=== PATIENT | male | born 1975 | race Caucasian/White ===

== ENCOUNTER 2016-10-03 17:05 | Emergency (ER) | payer SELFPAY ==
[2016-10-03] MEDS ORDERED: IBUPROFEN 800 MG TAB As Ordered ONE (18:47)
--- NOTE | 2016-10-03 19:11 | REP ---
Clinical: Trauma. Technique: AP, lateral, bilateral oblique views of the right ankle. Comparison: 01/02/2012. 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 Previous orthopedic fixation hardware has been removed. No obvious acute fracture or dislocation. Impression: Post traumatic arthritic changes. No acute fracture or dislocation identified. Signed by Tad Hammonds MD 10/03/2016 07:02 P
--- NOTE | 2016-10-03 20:05 | EDDOCDS ---
Nurse's Notes [facility] Name: Kenneth Gatica Age: 41 yrs Sex: Male : 1975 Arrival Date: 10/03/2016 Time: 17:05 Bed TR7 Private MD: NO PRIMARY PHYSICIAN, . Diagnosis: Sprain of other ligament of right ankle Presentation: 10/03 17:16 Presenting complaint: Patient states: Pt presents with injury to right ankle 4 days ago dls stepped outside t work twisted ankle. Pt has prior hx of surgery on right ankle. The patients lower extremity appears normal on examination. Adult Sepsis Screening: The patient does not have new or worsening altered mentation. Patient's respiratory rate is less than 22. Systolic blood pressure is greater than 100. Patient has a qSOFA score of 0- Negative Sepsis Screen. Suicide/Homicide risk assessment- the patient denies having any suicidal and/or homicidal ideations and does not present with any other emotional, behavioral or mental health complaints. Status: Patient is not a office services assistant or dependent. Transition of care: patient was not received from another setting of care. 17:16 Acuity: GALI Level 4 dls 17:16 Method Of Arrival: Walkin/Carried/Asstd dls Triage Assessment: 17:19 General: Appears in no apparent distress, slender, Behavior is cooperative. Pain: Pain dls currently is 5 out of 10 on a pain scale. HIV screening NA for this visit Offered previously. Historical: - Allergies: Amoxicillin; - Home Meds: 1. none - PMHx: collapsed lung; - PSHx: Chest Tube- Right; right ankle surgery; - Social history: Smoking status: Chewing Tobacco No barriers to communication noted, The patient speaks fluent East Timorese. - Family history: Not pertinent. - : The pt / caregiver states he / she is not on anticoagulants. Home medication list is obtained from the patient. - Exposure Risk Screening:: None identified. Screenin:27 Screening information is obtained from the patient. Primary language is East Timorese. Fall mk4 risk: No risks identified. Assistance ADL's: requires no assistance with activities of daily living. Abuse/DV Screen: The patient / caregiver reports he/she is: not in a situation that causes fear, pain or injury. Nutritional screening: No deficits noted. Advance Directives: Currently, there is no health care proxy. There is no active DNR order. There is no living will. There is no Power of Quality Intern. Advance directive information has not previously been placed in an [facility] medical record. Further advance directive information is declined. 19:50 home support is adequate. ko2 Assessment: 18:27 General: Appears in no apparent distress. Pain: Complains of pain in right ankle. mk4 Awake, alert, oriented. Skin warm and dry. Moves all extremities. No apparent distress. The patient / caregiver is instructed regarding the plan of care and ED course. Physical assessment to be completed by PA/ED. 19:48 General: Appears in no apparent distress, Behavior is appropriate for age, cooperative. ko2 Pain: Location: right ankle. Neurological: Level of Consciousness is awake, alert. Respiratory: Airway is patent Respiratory effort is even, unlabored. Derm: swelling to outer right ankle. Musculoskeletal: Capillary refill < 3 seconds No deformity noted Signs and Symptoms of Compartment Syndrome: no signs of compartment syndrome. Vital Signs: 17:07 BP 145 / 94; Pulse 85; Resp 18 S; Temp 98.5(O); Pulse Ox 100% on R/A; Weight 77.11 kg gr2 (R); Height 6 ft. 5 in. (195.58 cm) (R); Pain 5/10; 19:42 BP 136 / 90; Pulse 73; Resp 18; Temp 97.1(T); Pulse Ox 98% on R/A; Pain 4/10; kb5 17:07 Body Mass Index 20.16 (77.11 kg, 195.58 cm) gr2 Vitals: 17:07 Log In Time: October 03, 2016 at 17:07. gr2 ED Course: 17:06 Patient visited by Sonja Garcia. gr2 17:06 Patient moved to Waiting gr2 17:07 NO PRIMARY PHYSICIAN, . is Private Physician. gr2 17:09 Patient visited by Sonja Garcia. gr2 17:09 Patient moved to Pre RCE gr2 17:18 Triage Initiated dls 18:12 Patient moved to Triage 2 kcs 18:15 Patient visited by Maxine Browning RN. mk4 18:23 James Fortune PA is PHCP. mo1 18:23 Nadia Oakes MD is Attending Physician. mo1 18:24 Patient visited by James Fortune PA. mo1 18:27 Patient has correct armband on for positive identification. mk4 18:50 Patient moved to TR1 kcs 19:20 [facility] Payment Agreement was scanned into [email or web address] and attached to record. gjb 19:23 Ankle, Complete Returned. EDMS 19:31 Patient moved to PR1 / 25 ko2 19:43 Patient visited by Rafael Frank PCA. kb5 19:49 No IV's were initiated during this patient's visit. No procedures done that require ko2 assistance. 19:50 Javi wrap to right ankle. Patient has positive distal pulse, brisk capillary refill, and ko2 positive sensation after application. 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 Previous orthopedic fixation; hardware has been removed. No obvious acute fracture or dislocation.; ; Impression:; Post traumatic arthritic changes. No acute fracture or dislocation identified.; ; ; Signed by; Tad Hammonds MD 10/03/2016 07:02 P; Outcome: 19:25 Discharge ordered by Provider. mo1 19:50 Discharge Assessment: Patient awake, alert and oriented x 3. No cognitive and/or ko2 functional deficits noted. Patient verbalized understanding of disposition instructions. patient administered narcotics - no. The following High Risk Discharge criteria are identified: None. Discharged to home ambulatory. Condition: stable. Discharge instructions given to patient, Instructed on discharge instructions, follow up and referral plans. Demonstrated understanding of instructions, Pt was receptive of discharge instructions/ teaching. No special radiology studies were completed. Property sent home with patient. 20:04 Patient left the ED. ko2 Signatures: Dispatcher [employer] EDMS Karina Randolph RN RN kcs Scott, Debra, RN RN dls Bancroft, Kristopher, PCA ENVELOPE FOLDER kb5 Sonja Garcia gr2 James Fortune PA PA mo1 Maxine Browning RN RN mk4 Angella Puente,RN RN dimasd Heather Huynh,RN RN erin2 Myra Marcus MTDD
--- NOTE | 2016-10-03 20:05 | EDDOCDS ---
Physician Documentation [facility] Name: Kenneth Gatica Age: 41 yrs Sex: Male : 1975 Arrival Date: 10/03/2016 Time: 17:05 Bed TR7 Private MD: NO PRIMARY PHYSICIAN, . Disposition: 10/03/16 19:25 Discharged to Home/Self Care. Impression: Sprain of other ligament of right ankle. - Condition is Stable. - Discharge Instructions: Elastic Bandage and RICE, Ankle Sprain. - Medication Reconciliation, Local Pharmacy Hours, Work Release Form - 3 day form. - Follow up: Private Physician; When: Call to arrange an appointment; Reason: Recheck today's complaints, Continuance of care. - Problem is new. - Symptoms are unchanged. Historical: - Allergies: Amoxicillin; - Home Meds: 1. none - PMHx: collapsed lung; - PSHx: Chest Tube- Right; right ankle surgery; - Social history: Smoking status: Chewing Tobacco No barriers to communication noted, The patient speaks fluent Haitian. - Family history: Not pertinent. - : The pt / caregiver states he / she is not on anticoagulants. Home medication list is obtained from the patient. - Exposure Risk Screening:: None identified. Vital Signs: 10/03 17:07 BP 145 / 94; Pulse 85; Resp 18 S; Temp 98.5(O); Pulse Ox 100% on R/A; Weight 77.11 kg / gr2 170 lbs (R); Height 6 ft. 5 in. (195.58 cm) (R); Pain 5/10; 19:42 BP 136 / 90; Pulse 73; Resp 18; Temp 97.1(T); Pulse Ox 98% on R/A; Pain 4/10; kb5 17:07 Body Mass Index 20.16 (77.11 kg, 195.58 cm) gr2 MDM: 18:44 Ibuprofen 800 mg PO once ordered. mo1 18:45 Ankle, Complete Ordered. EDMS 18:51 Financial registration complete. gjb 19:20 [facility] Payment Agreement was scanned into [employer] and attached to record. gjb 19:24 Ankle, Complete Reviewed. mo1 19:24 Javi Wrap ordered. mo1 Administered Medications: 18:50 Drug: Ibuprofen 800 mg [ibuprofen 800 mg tablet (1 tabs)] Route: PO; kcs Signatures: Dispatcher [employer] Margret Webber RN James Doraod PA PA mo1 Ogden, Kari, RN RN ko2 Myra Marcus Kacey RN kcs The chart was reviewed and I authenticate all verbal orders and agree with the evaluation and treatment provided.Attachments: 19:20 [facility] Payment Agreement sarabjit MTDD
--- NOTE | 2016-10-05 21:05 | EDDOCDS ---
Physician Documentation [facility] Name: Kenneth Gatica Age: 41 yrs Sex: Male : 1975 Arrival Date: 10/03/2016 Time: 17:05 Bed TR7 Private MD: NO PRIMARY PHYSICIAN, . Disposition: 10/03/16 19:25 Discharged to Home/Self Care. Impression: Sprain of other ligament of right ankle. - Condition is Stable. - Discharge Instructions: Elastic Bandage and RICE, Ankle Sprain. - Medication Reconciliation, Local Pharmacy Hours, Work Release Form - 3 day form. - Follow up: Private Physician; When: Call to arrange an appointment; Reason: Recheck today's complaints, Continuance of care. - Problem is new. - Symptoms are unchanged. Historical: - Allergies: Amoxicillin; - Home Meds: 1. none - PMHx: collapsed lung; - PSHx: Chest Tube- Right; right ankle surgery; - Social history: Smoking status: Chewing Tobacco No barriers to communication noted, The patient speaks fluent Tunisian. - Family history: Not pertinent. - : The pt / caregiver states he / she is not on anticoagulants. Home medication list is obtained from the patient. - Exposure Risk Screening:: None identified. Vital Signs: 10/03 17:07 BP 145 / 94; Pulse 85; Resp 18 S; Temp 98.5(O); Pulse Ox 100% on R/A; Weight 77.11 kg / gr2 170 lbs (R); Height 6 ft. 5 in. (195.58 cm) (R); Pain 5/10; 19:42 BP 136 / 90; Pulse 73; Resp 18; Temp 97.1(T); Pulse Ox 98% on R/A; Pain 4/10; kb5 17:07 Body Mass Index 20.16 (77.11 kg, 195.58 cm) gr2 MDM: 18:44 Ibuprofen 800 mg PO once ordered. mo1 18:45 Ankle, Complete Ordered. EDMS 18:51 Financial registration complete. gjb 19:20 [facility] Payment Agreement was scanned into [employer] and attached to record. gjb 19:24 Ankle, Complete Reviewed. mo1 19:24 Javi Wrap ordered. mo1 10/04 14:04 T-Sheet-- Draft Copy was scanned into [employer] and attached to record. gb Administered Medications: 10/03 18:50 Drug: Ibuprofen 800 mg [ibuprofen 800 mg tablet (1 tabs)] Route: PO; kcs Signatures: Dispatcher [employer] Margret Webber, WARD RN Amy Gamboa, Reg Reg gb James Fortune PA PA mo1 Heather Huynh RN RN ko2 Myra Marcus Kacey RN kcs The chart was reviewed and I authenticate all verbal orders and agree with the evaluation and treatment provided.Attachments: 19:20 [facility] Payment Agreement gjb 10/04 14:04 T-Sheet-- Draft Copy gb Chart Complete MTDD
--- NOTE | 2016-10-05 21:05 | EDDOCDS ---
Nurse's Notes [facility] Name: Kenneth Gatica Age: 41 yrs Sex: Male : 1975 Arrival Date: 10/03/2016 Time: 17:05 Bed TR7 Private MD: NO PRIMARY PHYSICIAN, . Diagnosis: Sprain of other ligament of right ankle Presentation: 10/03 17:16 Presenting complaint: Patient states: Pt presents with injury to right ankle 4 days ago dls stepped outside t work twisted ankle. Pt has prior hx of surgery on right ankle. The patients lower extremity appears normal on examination. Adult Sepsis Screening: The patient does not have new or worsening altered mentation. Patient's respiratory rate is less than 22. Systolic blood pressure is greater than 100. Patient has a qSOFA score of 0- Negative Sepsis Screen. Suicide/Homicide risk assessment- the patient denies having any suicidal and/or homicidal ideations and does not present with any other emotional, behavioral or mental health complaints. Status: Patient is not a patient financial services coordinator or dependent. Transition of care: patient was not received from another setting of care. 17:16 Acuity: GALI Level 4 dls 17:16 Method Of Arrival: Walkin/Carried/Asstd dls Triage Assessment: 17:19 General: Appears in no apparent distress, slender, Behavior is cooperative. Pain: Pain dls currently is 5 out of 10 on a pain scale. HIV screening NA for this visit Offered previously. Historical: - Allergies: Amoxicillin; - Home Meds: 1. none - PMHx: collapsed lung; - PSHx: Chest Tube- Right; right ankle surgery; - Social history: Smoking status: Chewing Tobacco No barriers to communication noted, The patient speaks fluent Salvadorean. - Family history: Not pertinent. - : The pt / caregiver states he / she is not on anticoagulants. Home medication list is obtained from the patient. - Exposure Risk Screening:: None identified. Screenin:27 Screening information is obtained from the patient. Primary language is Salvadorean. Fall mk4 risk: No risks identified. Assistance ADL's: requires no assistance with activities of daily living. Abuse/DV Screen: The patient / caregiver reports he/she is: not in a situation that causes fear, pain or injury. Nutritional screening: No deficits noted. Advance Directives: Currently, there is no health care proxy. There is no active DNR order. There is no living will. There is no Power of Coach Driver. Advance directive information has not previously been placed in an [facility] medical record. Further advance directive information is declined. 19:50 home support is adequate. ko2 Assessment: 18:27 General: Appears in no apparent distress. Pain: Complains of pain in right ankle. mk4 Awake, alert, oriented. Skin warm and dry. Moves all extremities. No apparent distress. The patient / caregiver is instructed regarding the plan of care and ED course. Physical assessment to be completed by PA/ED. 19:48 General: Appears in no apparent distress, Behavior is appropriate for age, cooperative. ko2 Pain: Location: right ankle. Neurological: Level of Consciousness is awake, alert. Respiratory: Airway is patent Respiratory effort is even, unlabored. Derm: swelling to outer right ankle. Musculoskeletal: Capillary refill < 3 seconds No deformity noted Signs and Symptoms of Compartment Syndrome: no signs of compartment syndrome. Vital Signs: 17:07 BP 145 / 94; Pulse 85; Resp 18 S; Temp 98.5(O); Pulse Ox 100% on R/A; Weight 77.11 kg gr2 (R); Height 6 ft. 5 in. (195.58 cm) (R); Pain 5/10; 19:42 BP 136 / 90; Pulse 73; Resp 18; Temp 97.1(T); Pulse Ox 98% on R/A; Pain 4/10; kb5 17:07 Body Mass Index 20.16 (77.11 kg, 195.58 cm) gr2 Vitals: 17:07 Log In Time: October 03, 2016 at 17:07. gr2 ED Course: 17:06 Patient visited by Sonja Garcia. gr2 17:06 Patient moved to Waiting gr2 17:07 NO PRIMARY PHYSICIAN, . is Private Physician. gr2 17:09 Patient visited by Sonja Garcia. gr2 17:09 Patient moved to Pre RCE gr2 17:18 Triage Initiated dls 18:12 Patient moved to Triage 2 kcs 18:15 Patient visited by Maxine Browning RN. mk4 18:23 James Fortune PA is PHCP. mo1 18:23 Nadia Oakes MD is Attending Physician. mo1 18:24 Patient visited by James Fortune PA. mo1 18:27 Patient has correct armband on for positive identification. mk4 18:50 Patient moved to TR1 kcs 19:20 [facility] Payment Agreement was scanned into [employer] and attached to record. gjb 19:23 Ankle, Complete Returned. EDMS 19:31 Patient moved to PR1 / 25 ko2 19:43 Patient visited by Rafael Frank PCA. kb5 19:49 No IV's were initiated during this patient's visit. No procedures done that require ko2 assistance. 19:50 Javi wrap to right ankle. Patient has positive distal pulse, brisk capillary refill, and ko2 positive sensation after application. 19:54 Patient moved to TR7 ead 10/04 14:04 T-Sheet-- Draft Copy was scanned into [employer] and attached to record. 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 Previous orthopedic fixation; hardware has been removed. No obvious acute fracture or dislocation.; ; Impression:; Post traumatic arthritic changes. No acute fracture or dislocation identified.; ; ; Signed by; Tad Hammonds MD 10/03/2016 07:02 P; Outcome: 19:25 Discharge ordered by Provider. mo1 19:50 Discharge Assessment: Patient awake, alert and oriented x 3. No cognitive and/or ko2 functional deficits noted. Patient verbalized understanding of disposition instructions. patient administered narcotics - no. The following High Risk Discharge criteria are identified: None. Discharged to home ambulatory. Condition: stable. Discharge instructions given to patient, Instructed on discharge instructions, follow up and referral plans. Demonstrated understanding of instructions, Pt was receptive of discharge instructions/ teaching. No special radiology studies were completed. Property sent home with patient. 20:04 Patient left the ED. ko2 Signatures: Dispatcher [employer] EDMS Karina Randolph RN RN kcs Scott, Debra, RN RN dls Barnhardt, Gloria, Reg Reg gb Monika, Rafael, HVAC TECHNICIAN RESIDENTIAL HVAC TECHNICIAN RESIDENTIAL kb5 Sonja Garcia gr2 James Fortune PA PA mo1 Maxine Browning, RN RN mk4 Angella PuenteRN RN Heather KumarRN RN erin2 Myra Marcus Chart Complete MTDD
--- NOTE | 2016-10-05 21:05 | EDDOCDS ---
Physician Documentation [facility] Name: Kenneth Gatica Age: 41 yrs Sex: Male : 1975 Arrival Date: 10/03/2016 Time: 17:05 Bed TR7 Private MD: NO PRIMARY PHYSICIAN, . Disposition: 10/03/16 19:25 Discharged to Home/Self Care. Impression: Sprain of other ligament of right ankle. - Condition is Stable. - Discharge Instructions: Elastic Bandage and RICE, Ankle Sprain. - Medication Reconciliation, Local Pharmacy Hours, Work Release Form - 3 day form. - Follow up: Private Physician; When: Call to arrange an appointment; Reason: Recheck today's complaints, Continuance of care. - Problem is new. - Symptoms are unchanged. Historical: - Allergies: Amoxicillin; - Home Meds: 1. none - PMHx: collapsed lung; - PSHx: Chest Tube- Right; right ankle surgery; - Social history: Smoking status: Chewing Tobacco No barriers to communication noted, The patient speaks fluent Luxembourger. - Family history: Not pertinent. - : The pt / caregiver states he / she is not on anticoagulants. Home medication list is obtained from the patient. - Exposure Risk Screening:: None identified. Vital Signs: 10/03 17:07 BP 145 / 94; Pulse 85; Resp 18 S; Temp 98.5(O); Pulse Ox 100% on R/A; Weight 77.11 kg / gr2 170 lbs (R); Height 6 ft. 5 in. (195.58 cm) (R); Pain 5/10; 19:42 BP 136 / 90; Pulse 73; Resp 18; Temp 97.1(T); Pulse Ox 98% on R/A; Pain 4/10; kb5 17:07 Body Mass Index 20.16 (77.11 kg, 195.58 cm) gr2 MDM: 18:44 Ibuprofen 800 mg PO once ordered. mo1 18:45 Ankle, Complete Ordered. EDMS 18:51 Financial registration complete. gjb 19:20 [facility] Payment Agreement was scanned into [email or web address] and attached to record. gjb 19:24 Ankle, Complete Reviewed. mo1 19:24 Javi Wrap ordered. mo1 10/04 14:04 T-Sheet-- Draft Copy was scanned into [employer] and attached to record. gb Administered Medications: 10/03 18:50 Drug: Ibuprofen 800 mg [ibuprofen 800 mg tablet (1 tabs)] Route: PO; kcs Signatures: Dispatcher [employer] Margret Webber, WARD RN Amy Gamboa, Reg Reg gb James Fortune PA PA mo1 Heather Huynh RN RN ko2 Myra Marcus Kacey RN kcs The chart was reviewed and I authenticate all verbal orders and agree with the evaluation and treatment provided.Attachments: 19:20 [facility] Payment Agreement gjb 10/04 14:04 T-Sheet-- Draft Copy gb Chart Complete MTDD
== END 2016-10-03 20:04 | disposition home or self-care (01) ==
LOC: M ED 17:05
DX: S93.401A Sprain of unspecified ligament of right ankle, initial encounter (principal); W19.XXXA Unspecified fall, initial encounter; Y92.89 Other specified places as the place of occurrence of the external cause; Y93.89 Activity, other specified; Y99.0 Civilian activity done for income or pay; Z87.09 Personal history of other diseases of the respiratory system; Z88.0 Allergy status to penicillin; F17.220 Nicotine dependence, chewing tobacco, uncomplicated

== ENCOUNTER 2017-02-08 13:56 | Emergency (ER) | payer SELFPAY ==
[~2017-02-08] VITALS: Ht 195.6 cm; Wt 75.2 kg
[2017-02-08 13:57] VITALS: BP 157/85
[2017-02-08] MEDS ORDERED: KETO2CR EXT (14:56)
== END 2017-02-08 15:18 | disposition home or self-care (01) ==
LOC: M ED 15:09
DX: B35.4 Tinea corporis (principal); Z88.0 Allergy status to penicillin

== ENCOUNTER 2018-10-19 16:12 | Emergency (ER) | payer OTHER, SELFPAY ==
[~2018-10-19] VITALS: Ht 195.6 cm; Wt 75.0 kg
[~2018-10-19 16:12] MED LIST: KETO2CR EXT
[2018-10-19 16:13] VITALS: BP 146/88
[2018-10-19] MEDS ORDERED: BACT800T5 PO (16:45)
[2018-10-19] MEDS ORDERED: BACTRIM 160MG/800MG DS TAB PO ONE (16:45)
== END 2018-10-19 16:56 | disposition home or self-care (01) ==
LOC: M ED 16:12
DX: S61.213A Laceration without foreign body of left middle finger without damage to nail, initial encounter (principal); S91.132A Puncture wound without foreign body of left great toe without damage to nail, initial encounter; W26.8XXA Contact with other sharp object(s), not elsewhere classified, initial encounter; Y92.89 Other specified places as the place of occurrence of the external cause; Y99.0 Civilian activity done for income or pay; Z88.0 Allergy status to penicillin

== ENCOUNTER 2019-04-10 18:13 | Emergency (ER) | payer OTHER ==
[~2019-04-10] VITALS: Ht 195.6 cm; Wt 75.0 kg
[~2019-04-10 18:13] MED LIST changes: +BACT800T5 PO
[2019-04-10] MEDS ORDERED: ACET-683 PO (18:20)
[2019-04-10] MEDS ORDERED: IBUPROFEN 600 MG TAB PO ONE (20:30)
[2019-04-10] MEDS ORDERED: LIDOCAINE 5% (LIDODERM) PATCH TD ONE (20:30)
[2019-04-10] MEDS ORDERED: METH1TAB40 PO (22:34)
[2019-04-10] MEDS ORDERED: LIDO5TD TOP (22:34)
[2019-04-10 22:40] VITALS: BP 136/70
[2019-04-10] MEDS ORDERED: METHOCARBAMOL 750 MG TAB PO ONE (22:45)
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
[2019-04-11] MEDS ORDERED: **NOTE PATIENT COMMENT** MISC XX SCH (09:00)
== END 2019-04-10 22:46 | disposition home or self-care (01) ==
LOC: M ED 18:13
DX: S13.9XXA Sprain of joints and ligaments of unspecified parts of neck, initial encounter (principal); V43.52XA Car driver injured in collision with other type car in traffic accident, initial encounter; Y92.9 Unspecified place or not applicable; Y93.9 Activity, unspecified; Y99.9 Unspecified external cause status; Z88.0 Allergy status to penicillin

== ENCOUNTER 2022-02-21 13:57 | Emergency (ER) | payer OTHER, SELFPAY ==
[~2022-02-21] VITALS: Ht 195.6 cm; Wt 75.0 kg
[~2022-02-21 13:57] MED LIST changes: +ACET-683 PO; +LIDO5TD TOP; +METH-1164 PO
[2022-02-21] MEDS ORDERED: IBUP200C25 PO (14:39)
[2022-02-21] MEDS ORDERED: METH-1165 PO (17:19)
[2022-02-21] MEDS ORDERED: NAPR-885 PO (17:19)
[2022-02-21 17:25] VITALS: BP 143/100
== END 2022-02-21 17:46 | disposition home or self-care (01) ==
LOC: M ED 13:57
DX: M62.830 Muscle spasm of back (principal); Z87.891 Personal history of nicotine dependence; Z88.0 Allergy status to penicillin; Z79.899 Other long term (current) drug therapy